=== PATIENT | female | born 1950 | race Caucasian/White ===

== ENCOUNTER 2016-07-04 16:36 | Inpatient (IN) | payer OTHER ==
[~2016-07-04 16:36] MED LIST: DUONEB (A & A) INH ONE; NS 1,000 ML IV ONE
--- NOTE | 2016-07-04 16:45 | PROVIDER DOCUMENTATION ---
HPI-General Adult - General Chief Complaint: Unresponsive Stated Complaint: unresponsive/Ca with mets Time Seen by Provider: 07/04/16 17:25 Allergies/Adverse Reactions: Patient Allergies Allergy/AdvReac Type Severity Reaction Status Date / Time No Known Allergies Allergy Verified 07/04/16 16:55 Home Medications: Home Medication List Medication Instructions Recorded Confirmed Last Taken Type Amphetamine Salts [Adderall] 20 mg PO BID 05/10/13 07/04/16 07/04/16 08:30 History Fluoxetine [Prozac] 20 mg PO BID 05/10/13 07/04/16 07/04/16 08:30 History Hydromorphone HCl [Dilaudid] 4 mg PO Q8HR PRN 05/10/13 07/04/16 07/04/16 08:30 History Letrozole [Femara] 25 mg PO DAILY 05/10/13 07/04/16 07/04/16 08:30 History Levetiracetam [Keppra] 1,000 mg PO BID 05/10/13 07/04/16 07/04/16 08:30 History Levothyroxine [Synthroid] 100 microgm PO DAILY 05/10/13 07/04/16 07/04/16 08:30 History Oxazepam [Serax] 30 mg PO TID 05/10/13 07/04/16 07/04/16 08:30 History Rizatriptan [Maxalt] 10 mg PO PRN PRN 05/10/13 07/04/16 07/04/16 08:30 History Topiramate [Topamax] 100 mg PO DAILY 05/10/13 07/04/16 07/04/16 08:30 History Methocarbamol [Robaxin-750] 750 mg PO BID 08/02/14 07/04/16 07/04/16 08:30 History Metoclopramide [Reglan] 10 mg PO Q6HR PRN 07/04/16 07/04/16 07/04/16 08:30 History Potassium Chloride 20 meq PO DAILY 07/04/16 07/04/16 07/04/16 08:30 History Rivaroxaban [Xarelto] 5 mg PO DAILY 07/04/16 07/04/16 07/04/16 08:30 History - History of Present Illness -Gen Adult Nature of Presenting Problems: A 66 y/o F with with PMH of metastatic breast cancer to brain as per the family was brought in altered mental status and barely responsive since one day as per the family since last few days was getting progressive worse and recent suspicion of infection was started on ABX, as baseline interacts for basic needs but noted detoriation from baseline, family is poor historian and no source from family Review of Systems - Adult - REVIEW OF SYSTEMS - ADULT ROS:: unobtainable per condition Constitutional: reports: no symptoms reported Eyes: reports: no symptoms reported Ears, Nose, Mouth & Throat: reports: no symptoms reported Cardiovascular: reports: no symptoms reported Respiratory: reports: no symptoms reported Gastrointestinal: reports: no symptoms reported Genitourinary: reports: no symptoms reported Musculoskeletal: reports: no symptoms reported Integumentary: reports: no symptoms reported Neurological: reports: no symptoms reported Psychiatric: reports: no symptoms reported Endocrine: reports: no symptoms reported Hematologic/Lymphatic: reports: no symptoms reported Allergic/Immunologic: reports: no symptoms reported All Other Systems: Reviewed and Negative Past History - Adult - PAST MEDICAL HISTORY-ADULT Review of Records: reports: Old Records Reviewed, Nursing Assessment Review, Medications Reviewed, Social history reviewed & non-contributory. Major Childhood Illnesses: reports: denies history Cardiovascular: reports: denies history Respiratory: reports: denies history Gastrointestinal: reports: denies history Obstetrical/Gynecological: reports: uterine/ovarian cancer (breast cancer) Genitourinary: reports: denies history Musculoskeletal: reports: denies history Neurological: reports: Seizures/Epilepsy Endocrine/Immune: reports: thyroid disorder Other Conditions: reports: denies history - PRIOR SURGERIES/PROCEDURES Surgical/Procedure History: reports: CABG, cholecystectomy, joint replacement ( total knee replacement), other (right mastectomy) - PRIOR HOSPITALIZATIONS Prior Hospitalizations: reports: for similar symptoms - IMMUNIZATION STATUS Childhood Immunizations: See Nurse Assessment Flu Vaccine: See Nurse Assessment - FAMILY HISTORY Family History: reviewed, not pertinent Physical Exam-General - PHYSICAL EXAM-ADULT Initial Vital Signs Reviewed: Yes - CONSTITUTIONAL General Appearance: obtunded - HEAD, EARS, NOSE, MOUTH & THROAT HENMT: normocephalic/atraumatic, other (dry mucous membranes) - NECK Neck: supple - RESPIRATORY Respiratory: rhonchi, wheezing - CARDIOVASCULAR Cardiovascular: normal peripheral pulses, regular rate, rhythm, no edema, no JVD , no murmur - GASTROINTESTINAL (ABDOMEN) Abdominal Exam: soft - GENITOURINARY Female Genitalia/Pelvic Exam: deferred - MUSCULOSKELETAL Back Exam: normal inspection Extremity: normal inspection - SKIN Integumentary: normal color, warm/dry - NEUROLOGIC Neurologic: other (unable to test) - PSYCHIATRIC Psych/Mental Status: other (arousable to sternal rub, gag reflex present) Progress - PLAN OF CARE/RESULTS Progress/Plan/Lab Results: Laboratory Tests 07/04/16 07/04/16 07/04/16 16:42 16:52 16:52 WBC 7.88 RBC 4.88 Hgb 15.2 Hct 47.5 H MCV 97.3 MCH 31.1 H MCHC 32.0 L RDW Std Deviation 13.7 Plt Count 215 MPV 11.0 H Immature Gran % (Auto) 0.3 Neut % (Auto) 71.1 Lymph % (Auto) 18.8 L [place] % (Auto) 8.6 Eos % (Auto) 1.1 Baso % (Auto) 0.1 Immature Gran # (Auto) 0.02 Neut # (Auto) 5.60 Lymph # (Auto) 1.48 [place] # (Auto) 0.68 H Eos # (Auto) 0.09 Baso # (Auto) 0.01 Specimen Type ARTERIAL Sample Site R RADIAL pH 7.40 pCO2 35 pO2 70 HCO3 22.8 Base Excess -2.5 Oxyhemoglobin 93.0 L ABG O2 Sat (Calculated) 19.2 ABG O2 Saturation 97.2 ABG Carboxyhemoglobin 2.50 ABG Methemoglobin 1.9 H Александр Test YES A-a O2 Difference 86.0 Total Hemoglobin 14.7 Lactate 0.80 Liter Flow 2.0 Blood Gas Modality CANNULA FiO2 % 28.0 Sodium 141 Potassium 4.3 Chloride 104 Carbon Dioxide 22 L Anion Gap 15 BUN 21 Creatinine 0.6 Estimated GFR/1.73 m2 > 60 BUN/Creatinine Ratio 35 Glucose 108 H Calculated Osmolality 285 Calcium 9.6 Total Bilirubin 0.24 AST 40 H ALT 28 Alkaline Phosphatase 119 H Troponin T [id number] Pept Total Protein 8.1 Albumin 4.0 Globulin 4.1 Albumin/Globulin Ratio 1.0 Salicylates < 3.00 L 07/04/16 07/04/16 16:52 16:52 WBC RBC Hgb Hct MCV MCH MCHC RDW Std Deviation Plt Count MPV Immature Gran % (Auto) Neut % (Auto) Lymph % (Auto) [place] % (Auto) Eos % (Auto) Baso % (Auto) Immature Gran # (Auto) Neut # (Auto) Lymph # (Auto) [place] # (Auto) Eos # (Auto) Baso # (Auto) Specimen Type Sample Site pH pCO2 pO2 HCO3 Base Excess Oxyhemoglobin ABG O2 Sat (Calculated) ABG O2 Saturation ABG Carboxyhemoglobin ABG Methemoglobin Александр Test A-a O2 Difference Total Hemoglobin Lactate Liter Flow Blood Gas Modality FiO2 % Sodium Potassium Chloride Carbon Dioxide Anion Gap BUN Creatinine Estimated GFR/1.73 m2 BUN/Creatinine Ratio Glucose Calculated Osmolality Calcium Total Bilirubin AST ALT Alkaline Phosphatase Troponin T < 0.010 [id number]-Zefdbeodbjh Pept 403 H Total Protein Albumin Globulin Albumin/Globulin Ratio Salicylates Orders Category Date Time Status Saline Loc NOW Care 07/04/16 16:26 Active CHEST-PORTABLE [RAD] Stat Exams 07/04/16 16:26 Draft HEAD/C-SPINE W/O CONTRAST [CT] Stat Exams 07/04/16 16:29 Taken ABG [RESP] Routine Lab 07/04/16 16:42 Completed BLOOD CULTURE [BLDCUL] Stat Lab 07/04/16 17:15 Results CBC WITH DIFF [HEME] Stat Lab 07/04/16 16:52 Completed COMPREHENSIVE METABOLIC PANEL [CHEM] Stat Lab 07/04/16 16:52 Completed INFLUENZA SCREEN A/B Stat Lab 07/04/16 18:15 Completed PRO B-NATRIURETIC PEPTIDE Stat Lab 07/04/16 16:52 Completed SALICYLATES [TDM] Stat Lab 07/04/16 16:52 Completed TROPONIN T Stat Lab 07/04/16 16:52 Completed URINALYSIS [URINALYSIS] Stat Lab 07/04/16 16:28 Uncollected URINE DRUG SCREEN Stat Lab 07/04/16 16:39 Uncollected 0.9% Sodium Chloride Inj [Ns] 1,000 ml Med 07/04/16 16:26 Discontinued IV 999 mls/hr 0.9% Sodium Chloride Inj [Ns] 1,000 ml Med 07/04/16 19:19 Active IV 999 mls/hr Albuterol 2.5MG/Ipratrop 0.5MG [Duoneb (A & A)] Med 07/04/16 16:26 Discontinued 3 ml INH NOW ONE CefTRIAXONE 1 GM/NS [Rocephin 1 gm/Ns] 50 ml Med 07/04/16 19:19 Active IV NOW Aerosol Treatments Routine Oth 07/04/16 16:27 Completed Aerosol Treatments Stat Oth 07/04/16 16:27 Completed Pulse Oximetry Stat Oth 07/04/16 16:26 Active EKG [EKG] Stat Ther 07/04/16 16:39 Ordered Vital Signs Temp Pulse Resp BP Pulse Ox 07/04/16 16:50 83 16 95 07/04/16 16:36 102.0 F H 84 19 117/74 91 L No Known Allergies Allergy (Verified 07/04/16 16:55) Amphetamine Salts [Adderall] 20 mg PO BID 05/10/13 Fluoxetine [Prozac] 20 mg PO BID 05/10/13 Hydromorphone HCl [Dilaudid] 4 mg PO Q8HR PRN 05/10/13 Letrozole [Femara] 25 mg PO DAILY 05/10/13 Levetiracetam [Keppra] 1,000 mg PO BID 05/10/13 Levothyroxine [Synthroid] 100 microgm PO DAILY 05/10/13 Oxazepam [Serax] 30 mg PO TID 05/10/13 Rizatriptan [Maxalt] 10 mg PO PRN PRN 05/10/13 Topiramate [Topamax] 100 mg PO DAILY 05/10/13 Methocarbamol [Robaxin-750] 750 mg PO BID 08/02/14 Metoclopramide [Reglan] 10 mg PO Q6HR PRN 07/04/16 Potassium Chloride 20 meq PO DAILY 07/04/16 Rivaroxaban [Xarelto] 5 mg PO DAILY 07/04/16 I&O 07/03/16 07/04/16 07/05/16 07:59 07:59 07:59 Output Total 0 Balance 0 Laboratory 07/04/16 07/04/16 07/04/16 16:52 16:52 16:52 WBC RBC Hgb Hct MCV MCH MCHC RDW Std Deviation Plt Count MPV Immature Gran % (Auto) Neut % (Auto) Lymph % (Auto) [place] % (Auto) Eos % (Auto) Baso % (Auto) Immature Gran # (Auto) Neut # (Auto) Lymph # (Auto) [place] # (Auto) Eos # (Auto) Baso # (Auto) Specimen Type Sample Site pH pCO2 pO2 HCO3 Base Excess Oxyhemoglobin ABG O2 Sat (Calculated) ABG O2 Saturation ABG Carboxyhemoglobin ABG Methemoglobin Александр Test A-a O2 Difference Total Hemoglobin Lactate Liter Flow Blood Gas Modality FiO2 % Sodium 141 Potassium 4.3 Chloride 104 Carbon Dioxide 22 L Anion Gap 15 BUN 21 Creatinine 0.6 Estimated GFR/1.73 m2 > 60 BUN/Creatinine Ratio 35 Glucose 108 H Calculated Osmolality 285 Calcium 9.6 Total Bilirubin 0.24 AST 40 H ALT 28 Alkaline Phosphatase 119 H Troponin T < 0.010 Pgy-I-Knchwmnoaro Pept 403 H Total Protein 8.1 Albumin 4.0 Globulin 4.1 Albumin/Globulin Ratio 1.0 Salicylates < 3.00 L 07/04/16 07/04/16 16:52 16:42 WBC 7.88 RBC 4.88 Hgb 15.2 Hct 47.5 H MCV 97.3 MCH 31.1 H MCHC 32.0 L RDW Std Deviation 13.7 Plt Count 215 MPV 11.0 H Immature Gran % (Auto) 0.3 Neut % (Auto) 71.1 Lymph % (Auto) 18.8 L [place] % (Auto) 8.6 Eos % (Auto) 1.1 Baso % (Auto) 0.1 Immature Gran # (Auto) 0.02 Neut # (Auto) 5.60 Lymph # (Auto) 1.48 [place] # (Auto) 0.68 H Eos # (Auto) 0.09 Baso # (Auto) 0.01 Specimen Type ARTERIAL Sample Site R RADIAL pH 7.40 pCO2 35 pO2 70 HCO3 22.8 Base Excess -2.5 Oxyhemoglobin 93.0 L ABG O2 Sat (Calculated) 19.2 ABG O2 Saturation 97.2 ABG Carboxyhemoglobin 2.50 ABG Methemoglobin 1.9 H Александр Test YES A-a O2 Difference 86.0 Total Hemoglobin 14.7 Lactate 0.80 Liter Flow 2.0 Blood Gas Modality CANNULA FiO2 % 28.0 Sodium Potassium Chloride Carbon Dioxide Anion Gap BUN Creatinine Estimated GFR/1.73 m2 BUN/Creatinine Ratio Glucose Calculated Osmolality Calcium Total Bilirubin AST ALT Alkaline Phosphatase Troponin T Qzc-[id number]-Kttegtxagko Pept Total Protein Albumin Globulin Albumin/Globulin Ratio Salicylates - EKG 1 Time of EKG reading by physician:: 19:21 Comments: NSR, non specific ST depression in V3-6 - XRAY 1 XRAY Study: Chest Impression: See EMR Report - CT/MRI 1 CT Study: Head Impression: See EMR Report - CONSULTS/PCP/HOSPITALIST Notification #1 *Consult/PCP/Hospitalist*: DR Poe Time Discussed: 19:22 Consult Disposition: Admit - CHANGE OF SHIFT REPORT (ED Provider) Items Pending: Labs, CT/MRI Results Departure - Departure Time of Disposition Order: 19:22 DIAGNOSIS: ST segment changes on electrocardiogram Altered mental status Qualifiers: Altered mental status type: unspecified Qualified Code(s): R41.82 - Altered mental status, unspecified Disposition: ADMITTED INPATIENT 09 Certified Medical Emergency: Emergent Condition: Stable - Critical Care Note Comments: A 66 y/o who was AMS compared to her baseline initial labs not impressive given bolus of fluids improved influenza was negative WBC normal unable to get urine after foleys will bolus with another IV fluids, admit for further evalaution after rocephen
[2016-07-04 16:51] LABS: ALLEN TEST YES; BE -2.5 mmoll (-3.0-3.0); BLOOD TYPE ARTERIAL; DRAW SITE R RADIAL; METHB 1.9 % (0.0-1.5); O2(CT) 19.2 mL/dL (15.0-23.0); PCO2(98.6) 35 mmHg (35-45); PO2(98.6) 70 mmHg (60-100); SAMPLE BLOOD; SAO2 97.2 % (95.0-100.0); THB 14.7 g/dL (11.5-17.4)
[2016-07-04 16:52] LABS: MODALITY CANNULA
[2016-07-04 17:08] LABS: MANUAL DIFF NEEDED? NO
[2016-07-04 17:10] LABS: BASO% 0.1 % (0.0-0.8); EOS# 0.09 X1000 (0.0-0.7); EOS% 1.1 % (0.0-10.0); HEMATOCRIT 47.5 % (37.0-47.0); HEMOGLOBIN 15.2 g/dL (12.0-16.0); IMM GRAN# 0.02 X1000 (0.0-0.04); IMM GRAN% 0.3 % (0.0-0.5); LYMPH# 1.48 X1000 (1.2-3.4); LYMPH% 18.8 % (20.5-51.1); MCH 31.1 PG (27-31); MCV 97.3 FL (81-99); MONO# 0.68 X1000 (0.11-0.59); MONO% 8.6 % (1.7-9.3); NEUT% 71.1 % (42.2-75.2); PLT 215 X1000 (130-400); RBC 4.88 XMIL (4.2-5.4)
--- NOTE | 2016-07-04 17:11 | Diag Imaging Result Document ---
PROCEDURE NAME: CHEST-PORTABLE - 07/04/2016 PORTABLE CHEST X-RAY: COMPARISON: 01/03/2015. FINDINGS: Stable left chest port in good position. There is some stable atelectasis or scarring in the right apex. No new or focal infiltrates. Heart size is normal. IMPRESSION: No change from prior. No evidence of acute disease.
[2016-07-04 17:44] LABS: AGAP 15; ALKALINE PHOSPHATASE 119 U/L (32-104); BUN 21 mg/dL (8-22); CALCIUM 9.6 mg/dL (8.8-10.2); CHLORIDE 104 mmol/L (98-107); COSMO 285; GOT 40 U/L (10-30); GPT 28 U/L (10-36); POTASSIUM 4.3 mmol/L (3.5-5.1); SODIUM 141 mmol/L (136-145); TCO2 22 mmol/L (25-35); TOTAL BILIRUBIN 0.24 mg/dL (0.20-1.00); TOTAL PROTEIN 8.1 g/dL (6.3-8.3)
[2016-07-04] MEDS ORDERED: NS 1,000 ML IV ONE (19:19)
[2016-07-04] MEDS ORDERED: ROCEPHIN 1 GM/NS 50 ML IV ONE (19:19)
[2016-07-04 19:59] LABS: URINE SOURCE CATH
[2016-07-04 20:04] LABS: BILIRUBIN URINE NEGATIVE (NEGATIVE); BLOOD URINE LARGE (NEGATIVE); COLOR YELLOW; GLUCOSE URINE NEGATIVE (NEGATIVE); LEUKOCYTES URINE SMALL (NEGATIVE); NITRITE URINE NEGATIVE (NEGATIVE); PH URINE 5.5; PROTEIN URINE 200 mg/dL (NEGATIVE); SP GRAVITY URINE 1.027; TURBIDITY URINE HAZY (CLEAR); UROBILINOGEN URINE NORMAL (NORMAL)
[2016-07-04 20:06] LABS: URINE MICRO REVIEW NEEDED? YES
[2016-07-04 20:18] LABS: UR EPITHELIAL CELLS <10 /HPF (<10); URINE BACTERIA NEGATIVE /HPF; URINE WBC TNTC /HPF (<10)
[2016-07-04 20:26] LABS: URINE CASTS NONE SEEN; URINE CRYSTALS NONE SEEN; URINE SMALL ROUND CELLS RENAL PRESENT
[2016-07-04 20:28] LABS: UR AMPHETAMINES QUAL NONE DETECTED (NONE DETECT); UR BARBITUATES QUAL NONE DETECTED (NONE DETECT); UR BENZODIAZEPIN QUAL PRESUMPTIVE POSITIVE (NONE DETECT); UR CANNABINOIDS QUAL NONE DETECTED (NONE DETECT); UR COCAINE QUAL NONE DETECTED (NONE DETECT); UR METHADONE QUAL NONE DETECTED (NONE DETECT); UR OPIATES QUAL PRESUMPTIVE POSITIVE (NONE DETECT); UR OXYCODONE QUAL NONE DETECTED (NONE DETECT); UR PCP QUAL NONE DETECTED (NONE DETECT)
[2016-07-04] MEDS ORDERED: NITROGLYCERIN ONE (21:24)
[2016-07-04] MEDS ORDERED: LASIX ONE (21:24)
[2016-07-04] MEDS ORDERED: MAXALT PO PRN (22:29)
[2016-07-04] MEDS: DUONEB (A & A) INH SCH (22:29)
[2016-07-04] MEDS ORDERED: DILAUDID PO PRN (22:29)
[2016-07-04] MEDS ORDERED: REGLAN PO PRN (22:29)
[2016-07-04] MEDS ORDERED: ZOFRAN IV PRN (22:29)
[2016-07-04] MEDS: TYLENOL PR PRN (22:40)
[2016-07-04] MEDS ORDERED: DUONEB (A & A) ONE (22:49)
[2016-07-05] MEDS: NS 1,000 ML IV SCH ×2 (03:33→16:10)
[2016-07-05] MEDS: DUONEB (A & A) INH SCH ×4 (04:00→19:28)
--- NOTE | 2016-07-05 04:53 | HISTORY AND PHYSICAL ---
CHIEF COMPLAINT: Unresponsiveness. HISTORY OF PRESENT ILLNESS: This is an unfortunate 66-year-old female, who has her at the bedside. She is known to have metastatic breast cancer with metastases to the brain and bone. She was brought in with altered mental status. Apparently, she is really never responsive at home and is bed bound per the family. The did state that she is somewhat more responsive than she is on the interview. At the time of interview, she basically only opens her eyes and makes eye contact. Does not respond or have any purposeful movements or follow commands. The did state that as far as they knew, the cancer had gone into remission; however, he is a very poor historian and was not able to give me any real information on her last chemotherapy. As far as the knows, roughly 1 year ago, it went into remission. Dr. Agarwal was treating her and stated that according to the , he did need to see her as frequently. At any rate, she has further past medical history of seizure disorder, hypothyroidism, DVT, GERD and hypertension related to her chronic versus acute presentation. She will be placed in ICU overnight. Her blood pressures on arrival were very marginal with a systolic blood pressure being in the 90s. She has a questionable history of congestive heart failure. So, it is unknown whether the patient can have substantial fluid bolusing without overloading. PAST MEDICAL HISTORY: See HPI. PREVIOUS SURGICAL HISTORY: 1. Right mastectomy. 2. CABG. 3. Cholecystectomy. 4. Total knee replacement. SOCIAL HISTORY: She lives at home with her . Denies tobacco, alcohol or illicit drug use or abuse. FAMILY HISTORY: Brother had esophageal and liver cancer. No other known past medical history per the . HOME MEDICATIONS: 1. Adderall 20 mg p.o. b.i.d. 2. Robaxin 750 p.o. b.i.d. 3. Prozac 20 mg p.o. b.i.d. 4. Dilaudid 4 mg p.o. q.8 hours. 5. Letrozole 25 mg p.o. daily. 6. Keppra 1000 mg p.o. b.i.d. 7. Synthroid 100 mcg p.o. daily. 8. Reglan 10 mg p.o. q.6 hours p.r.n. 9. Serax 30 mg p.o. t.i.d. 10. Potassium chloride 20 mEq p.o. daily. 11. Xarelto 5 mg p.o. daily. 12. Maxalt 10 mg p.o. p.r.n. 13. Topamax 10 mg p.o. daily. ALLERGIES: No known drug allergies. REVIEW OF SYSTEMS: Fourteen point review of systems could not be performed with the patient, as she is obtunded. states that she is have her call off at home. He states that he had not been keeping close watch on her over the last couple days as he has been ill himself. PHYSICAL EXAMINATION: VITAL SIGNS: Temp was 101.5 degrees rectally, pulse 70, respirations 15, blood pressure 90/50 to 103/61, oxygen saturation 95-97 on 3 L nasal cannula. GENERAL: Obtunded 66-year-old female, lying in the ER stretcher. No acute distress. Does not answer questions or follow commands. HEENT: Head is atraumatic, normocephalic. Right pupil is 5 mm and sluggish, left pupil 3 mm and sluggish; however, both are reactive. Extraocular eye movement could not be tested. She does not follow commands. Oral mucosa is dry. NECK: Supple. No JVD. No thyromegaly. Trachea is midline. No cervical lymphadenopathy. CARDIAC: Regular rhythm. S1-S2 appreciated, 1 to 2/6 systolic murmur noted. LUNGS: Decreased bilaterally. Mild rhonchi noted throughout the airways that clears with cough. ABDOMEN: Soft, nondistended, nontender. Bowel sounds present in all 4 quadrants. Hypoactive. No pulsatile mass. No organomegaly. EXTREMITIES: Trace nonpitting bilateral lower extremity edema. One plus pedal pulses bilaterally. No clubbing, cyanosis, or edema. GENITOURINARY: Beltran catheter in place draining scant amount of dark urine. NEUROLOGICAL: Patient does not follow commands. She does reflex to deep stimulus. Did make eye contact. The patient is nonverbal at present. According to the , this is close to her baseline status. DIAGNOSTIC DATA: CT of the head shows chronic changes. Chest x-ray stable from last x-ray. No acute infiltrate or fluid volume overload. LABORATORY DATA: WBC 7.88, hemoglobin 15.2, hematocrit 47.5 platelet count 215,000. ABG within normal limits. Sodium 141, potassium 4.3, chloride 104, carbon dioxide 22, BUN 21, creatinine 0.6, glucose 108, alkaline phosphate is 119. Urine is leukocyte esterase positive with too numerous to count WBCs. Toxicology screen positive for opiates and benzodiazepines, which were prescribed medications. ASSESSMENT: 1. Altered mental status with febrile illness in a stage IV breast cancer patient with metastases to the brain and bone. 2. Questionable urinary tract infection. 3. Hypothyroidism. 4. Gastroesophageal reflux disease. 5. Seizure disorder. 6. Hypertension, now hypotensive. PLAN: Admit patient overnight to the ICU for close monitoring, as she is hypotensive; 2 L of fluid bolus was given in the emergency room. We will continue maintenance fluids for gentle hydration with normal saline at 75 mL an hour. We will continue Topamax and Maxalt for seizure disorder. Continue Xarelto for history of DVTs also related to her having a Port-A-Cath. Continue her Synthroid for hypothyroidism. Add Keppra to the medications. Maxalt and Topamax that were continued for seizure disorder. We will continue her Dilaudid for pain control. Hold her Adderall at this time, as well as her Robaxin. states that if his 's heart were to spontaneously stop or she were to spontaneously stop breathing, she would want full resuscitative measures. We will consult Dr. Agarwal, who is familiar with the patient. Recheck laboratory data in a.m. Urine culture and blood cultures are pending. Recheck echocardiogram, as the patient has a stated history of congestive heart failure. Also, check TSH level. Further recommendations per patient clinical course. Dictated by PIA Vargas for Carl Poe MD
[2016-07-05 06:06] LABS: MANUAL DIFF NEEDED? NO
[2016-07-05 06:30] LABS: AGAP 13; BUN 16 mg/dL (8-22); CHLORIDE 114 mmol/L (98-107); COSMO 295; MAGNESIUM 1.7 mg/dL (1.5-2.7); POTASSIUM 3.1 mmol/L (3.5-5.1); SODIUM 147 mmol/L (136-145); TCO2 20 mmol/L (25-35)
[2016-07-05 06:46] LABS: CALCIUM 8.1 mg/dL (8.8-10.2)
[2016-07-05 06:51] LABS: BASO% 0.2 % (0.0-0.8); EOS# 0.01 X1000 (0.0-0.7); EOS% 0.2 % (0.0-10.0); HEMATOCRIT 39.5 % (37.0-47.0); HEMOGLOBIN 12.6 g/dL (12.0-16.0); LYMPH# 1.41 X1000 (1.2-3.4); LYMPH% 21.5 % (20.5-51.1); MCH 31.6 PG (27-31); MCHC 31.9 g/dL (33-37); MONO# 0.55 X1000 (0.11-0.59); MONO% 8.4 % (1.7-9.3); MPV 10.7 FL (7.4-10.4); NEUT% 69.7 % (42.2-75.2); PLT 200 X1000 (130-400); RBC 3.99 XMIL (4.2-5.4)
--- NOTE | 2016-07-05 07:23 | EKG Report ---
Test Performed on : 07/05/2016 06:35:28 AM Test Reason : chest pain Blood Pressure : / mmHG Vent. Rate : 060 BPM Atrial Rate : 060 BPM P-R Int : 178 ms QRS Dur : 072 ms QT Int : 376 ms P-R-T Axes : 040 -01 -37 degrees QTc Int : 376 ms Normal sinus rhythm. Nonspecific ST and T wave abnormality Abnormal ECG When compared with ECG of 04-JUL-2016 19:11, (Unconfirmed) QT has shortened Confirmed by Thea PHILLIPS, Александр Landrum ([id number]) on 07/05/2016 5:23:11 PM
[2016-07-05] MEDS: SERAX PO SCH ×3 (08:18→16:15)
[2016-07-05] MEDS: PROZAC PO SCH ×2 (08:18→20:29)
[2016-07-05] MEDS: KLOR-CON PO SCH (08:18)
[2016-07-05] MEDS: SYNTHROID PO SCH (08:19)
[2016-07-05] MEDS: TOPAMAX PO SCH (08:19)
[2016-07-05] MEDS ORDERED: KEPPRA PO SCH (09:00)
--- NOTE | 2016-07-05 09:08 | ED EKG INTERP ---
EKG Interpretation - EKG Time of EKG reading by physician:: 19:11 EKG Read and Signed by:: Carlyn Saldana EKG Interpretation (*Must complete 3 of following elements*): Abnormal Rate: 75 Rhythm: nsr [place]: normal QRS: normal IA Interval: normal ST Wave: non-specific ST changes
--- NOTE | 2016-07-05 09:35 | Diag Imaging Result Document ---
PROCEDURE NAME: HEAD/C-SPINE W/O CONTRAST - 07/04/2016 CT OF THE HEAD WITHOUT CONTRAST: FINDINGS: There is marked cerebral atrophy. This is particularly notable in the frontal lobes where there is profound hypodensity in the subcortical white matter. There is no evidence of bleed or mass effect. Compared to the previous study of 08/02/2014, the appearance of the brain has not changed appreciably. IMPRESSION: Chronic atrophy and white matter changes. No evidence of acute intracranial disease. CT OF THE CERVICAL SPINE: FINDINGS: There is a large linear opacity in the upper lobe on the right extending to the apical pleura. This is probably due to fibrosis. A similar appearance was present on the CT of the chest dated 05/25/2010. There is no evidence of prevertebral soft tissue swelling. There is posterior osteophyte formation at C5-6 and ankylosis at C6-7. Facets appear to be well aligned. IMPRESSION: No evidence of acute bony disease.
--- NOTE | 2016-07-05 09:48 | PROGRESS NOTE ---
DATE: 07/05/2016 SUBJECTIVE: Ms. Rapp is a little more comfortable; her son was at the bedside working on his laptop. He states that her breathing is better. She was up most of the night last night struggling to breathe. Her history is that she presented about 12 o'clock last night. She is a 66-year-old whose was at the bedside when she presented. She has metastatic breast cancer with metastasis to the brain and bone. She has trouble with speech delays, but he noticed altered mental status. She was not recognizing people and seemed to be less responsive. She is bed bound somewhat, and there is quite a bit of improvement from last night to this morning. He felt the cancer had gone into remission and feels like the cancer was doing better from that standpoint by his understanding. PAST MEDICAL HISTORY: Seizure disorder, hypothyroidism, DVT, gastroesophageal reflux disease and hypertension. PAST SURGICAL HISTORY: Right mastectomy CABG surgery, cholecystectomy, total knee replacement. OBJECTIVE: Vital Signs: On exam today in the emergency room she is still in holding. Temp 98.3 degrees, pulse 52, respirations 20, blood pressure 106/53. Eyes: Pupils were equal, round. Lungs: Clear in all lung levy. Cardiovascular exam: Regular rhythm and rate without murmur or S3. Abdomen: Soft. Skin: Warm and dry. LABS: White blood cell count 6560, hematocrit 39, platelet count 200,000. Sodium 147, potassium 3.1, chloride 114, bicarbonate 20, BUN 16, creatinine 0.5. Blood sugar 119 and 108. Urine drug screen: She is presumptive positive for opiates and benzodiazepines which she takes. Urinalysis was too numerous to count white blood cells. Culture is pending. Blood gas when she arrived: The pH was 7.40, pCO2 of 35, PO2 was 70, O2 saturation was 93%. MICROBIOLOGY: Respiratory secretions negative for influenza A and B. X-RAYS: Chest x-ray: There is no change from prior. No evidence of acute disease. ASSESSMENT AND PLAN: 1. Altered mental status, febrile illness, stage IV breast cancer. Patient with metastasis to the brain and bone. 2. Questionable urinary tract infection with what looks like she has urinary tract infection. 3. Hypothyroidism. 4. Gastroesophageal reflux disease. 5. History of seizure disorder. 6. Hypertension. Appears to be doing a little bit better. She is followed by Dr. Agarwal. REVIEWED CURRENT MEDICATIONS: 1. Xarelto 5 mg daily. 2. Femara 25 mg daily. 3. Topamax 100 mg daily. 4. Synthroid 100 mcg daily. 5. Serax 30 mg t.i.d. 6. Ceftriaxone 1 g q. 24 hours. 7. Prozac 20 mg b.i.d. 8. Normal saline at 75 mL an hour. 9. Keppra 1000 mg b.i.d. 10. Potassium chloride 20 mEq daily. 11. The patient is on albuterol treatments. 12. She received a dose of Maxalt I believe for migraine headache.
--- NOTE | 2016-07-05 12:29 | CONSULTATION ---
DATE OF CONSULTATION: 07/05/2016 REASON FOR CONSULT: This patient is known us with metastatic breast cancer to the bones and brain. She has been on Femara 2.5 mg. she had previously been on Herceptin but her ejection fraction dropped and so she came off of it. She has not been seen in our clinic since December due to difficulties traveling to our clinic. She is on home health care. HISTORY OF PRESENT ILLNESS: At baseline patient is wheelchair/bed bound and non -verbal. The patient is in the hospital with unresponsiveness. She is known to have metastatic breast cancer to the brain and bones, and we have not seen her in our clinic since December,. She is, however, and she is however and continuing on Femara 2.5 mg a day. She has been receiving palliative care at home health services. Apparently she became more unresponsive than usual, no purposeful movements or following commands. There is no stated falls. A head/cervical spine CT were performed which showed no acute processes, and the C-spine showed chronic atrophy and white matter changes with no evidence of acute intracranial disease. REVIEW OF SYSTEMS: All other review of systems negative unless indicated in the HPI. ALLERGIES: No known allergies. PAST MEDICAL HISTORY: 1. Metastatic breast cancer to brain and bones. 2. B12 deficiency. 3. Brain metastases status post radiation. MEDICATIONS: 1. Adderall. 2. Robaxin. 3. Prozac. 4. Dilaudid. 5. Keppra. 6. Synthroid. 7. Reglan. 8. Potassium. 9. Xarelto. 10. Maxalt. 11. Topamax. DIAGNOSTIC DATA: A CT of the head and C-spine as above. WBC 6.56, hemoglobin 12.6, platelet count 200,000 sodium 147, potassium 3.1, BUN 16, creatinine 0.5. PHYSICAL EXAMINATION: Vital signs: Are stable. This is an obtunded female in no acute distress and does not follow commands. HEENT: Head is normocephalic, atraumatic. Pupils are sluggish. Oral mucosa dry. Cardiovascular: S1, S2 audible auscultation with no heaves, lifts, thrills. Pulmonary: Breath sounds diminished bilaterally with normal respiratory effort. Abdomen: Soft, nondistended. Positive bowel sounds in all 4 quadrants. Extremities: There is trace edema bilateral lower extremities. Neurologic: Patient does not follow commands. Skin: No petechiae, no rash. ASSESSMENT AND PLAN: 1. Metastatic breast cancer to brain and bones. This patient has not been seen in our clinic since December,. She apparently has been continuing on Femara 2.5 mg a day. The Herceptin was stopped in October, due to decreased ejection fraction. She has stopped coming to our clinic due to difficulty traveling back and forth. She is under palliative care and Home Health. 2. Altered mental status. CT of the head was essentially benign per the primary team. 3. Seizure disorder on Keppra. 4. Brain metastases status post radiation. 5. History of deep vein thrombosis. Patient is on Xarelto. Dictated by PIA Hernandez for Rick Agarwal MD MTDD
[2016-07-05] MEDS: FEMARA PO SCH (15:08)
[2016-07-05] MEDS: XARELTO PO SCH (16:10)
[2016-07-05] MEDS: KEPPRA 1,000 MG in NS 100 ML IV SCH (16:10)
[2016-07-05] MEDS ORDERED: CALMOSEPTINE OINTMENT TOP PRN (17:10)
[2016-07-05] MEDS: ROCEPHIN 1 GM/NS 50 ML IV SCH (17:32)
--- NOTE | 2016-07-05 17:53 | ECHO REPORT ---
ORDER DATE: 07/05/2016 INTERPRETING PHYSICIAN: Dr. Ng REQUESTING PHYSICIAN: CLINICAL INDICATIONS: A 66-year-old female with congestive heart failure, breast cancer. M-MODE MEASUREMENTS: Right ventricle: 2.7 cm. Left ventricle end diastole: 4.5 cm. Left ventricle end systole: 3.1 cm. Posterior wall: 1.1 cm. Interventricular septum: 1.1 cm. Left atrium: 3.2 cm. Aortic root: 3.1 cm. SUMMARY OF 2-DIMENSIONAL IMAGING: The left ventricular function is normal. Ejection fraction 61%. There is no wall motion abnormality. The right ventricle is normal. The aortic valve looks normal. Color flow mapping unremarkable. The mitral valve looks normal. Pulse wave Doppler of mitral inflow is normal. Tissue Doppler of septal and lateral mitral annulus averages 11 cm per second. There is no diastolic dysfunction. The tricuspid valve shows a mild degree of regurgitation. Pulmonary pressure is estimated in the range of 32-37 mmHg. The pulmonic valve looks normal. Color flow mapping unremarkable. There is no pericardial effusion, masses or thrombus. Clinical correlation recommended.
[2016-07-05] MEDS ORDERED: BLISTEX MEDICATED BERRY LIP BALM TOP PRN (20:40)
[2016-07-05] MEDS: MORPHINE IV PRN (20:54)
[2016-07-05] MEDS: TYLENOL PR PRN (23:41)
[2016-07-06] MEDS: DUONEB (A & A) INH SCH ×4 (02:49→21:45)
[2016-07-06] MEDS: KEPPRA 1,000 MG in NS 100 ML IV SCH ×2 (02:56→15:35)
[2016-07-06] MEDS: NS 1,000 ML IV SCH ×2 (02:56→18:17)
[2016-07-06] MEDS: MORPHINE IV PRN ×3 (02:56→21:57)
[2016-07-06] MEDS: SYNTHROID PO SCH (06:02)
[2016-07-06] MEDS: FEMARA PO SCH (08:59)
[2016-07-06] MEDS: PROZAC PO SCH ×2 (08:59→21:10)
[2016-07-06] MEDS: XARELTO PO SCH (08:59)
[2016-07-06] MEDS: TOPAMAX PO SCH (09:00)
[2016-07-06] MEDS ORDERED: POTASSIUM CHLORIDE 40 MEQ/SWI 100 ML IV ONE ×2 (09:01→09:37)
[2016-07-06] MEDS: SERAX PO SCH ×3 (09:07→16:45)
[2016-07-06] MEDS: KLOR-CON PO SCH (09:07)
--- NOTE | 2016-07-06 10:30 | Diag Imaging Result Document ---
PROCEDURE NAME: CHEST/ABD TUBE PLACEMENT - 07/05/2016 PORTABLE EXAM FOR NASOGASTRIC TUBE PLACEMENT 2155 HOURS: FINDINGS: The tip of the nasogastric tube is at the expected location of the mid stomach. IMPRESSION: Nasogastric tube extending to the mid stomach.
[2016-07-06] MEDS: ATIVAN IV PRN ×2 (11:33→21:57)
--- NOTE | 2016-07-06 12:16 | PROGRESS NOTE ---
DATE: 07/06/2016 SUBJECTIVE: Ms. Rapp appears more alert. The sons are at the bedside. She is trying to grind her teeth, which apparently she does at home. She takes Serax when she is at home, which we are not able to give her right now. We need to order it up. She is not really taking anything by mouth at this point. OBJECTIVE: Vital signs: Afebrile, temp 99.4, pulse 68, respirations 17, blood pressure 105/61. HEENT: Pupils are equal and round. Lungs: Clear in all lung levy. Cardiovascular: She has got a regular rhythm and rate without murmur or S3. Abdomen: Soft. Skin: Warm and dry. Urine output 800 mL. LAB: No new lab from this morning. Reviewed lab from yesterday. Potassium is 3.1. Magnesium was 1.7. DIAGNOSTIC DATA: We did an echocardiogram on 07/05/2016. Left ventricular ejection fraction 61%. No wall motion abnormality. Right ventricle normal. Aortic valve looked normal. No valvular dysfunction. Pulmonary pressure is 32-37. Tricuspid valve showed a mild degree of regurgitation. ASSESSMENT AND PLAN: 1. Metastatic breast cancer to the bones and brain. We have been continuing Femara 2.5 mg a day. Herceptin was stopped in October of 2014 due to decreased ejection fraction. She had stopped coming to the clinic due to difficulty travelling back and forth. She is under palliative care with home health. 2. Altered mental status. CT of the head essentially benign but appears to be metabolic encephalopathy. 3. Seizure disorder on Keppra. Continue the Keppra. 4. Brain metastasis status post radiation. 5. History of deep venous thrombosis. She is, I believe, on Xarelto. MEDICATIONS: Have her on Keppra 1000 mg q.12 h., Xarelto 5 mg daily, Topamax 100 mg daily, Synthroid 100 mcg daily, Serax is ordered 30 mg p.o. t.i.d.--still waiting on that, Prozac 20 mg b.i.d., ceftriaxone 1 g q.24 h., Femara 2.5 mg daily, Maxalt 10 mg we gave her in the emergency room. Will continue present regimen, supplement her potassium.
[2016-07-06] MEDS: ROCEPHIN 1 GM/NS 50 ML IV SCH (18:17)
[2016-07-07] MEDS: ATIVAN IV PRN ×2 (03:06→20:47)
[2016-07-07] MEDS: MORPHINE IV PRN ×3 (03:06→20:48)
[2016-07-07] MEDS: KEPPRA 1,000 MG in NS 100 ML IV SCH ×2 (03:07→15:32)
[2016-07-07] MEDS: DUONEB (A & A) INH SCH ×4 (03:47→23:32)
[2016-07-07] MEDS: NS 1,000 ML IV SCH ×2 (06:20→18:10)
[2016-07-07] MEDS: SYNTHROID PO SCH (06:20)
[2016-07-07] MEDS: TOPAMAX PO SCH (08:25)
[2016-07-07] MEDS: FEMARA PO SCH (08:25)
[2016-07-07] MEDS: XARELTO PO SCH (08:25)
[2016-07-07] MEDS: PROZAC PO SCH ×2 (08:25→20:47)
--- NOTE | 2016-07-07 09:55 | PROGRESS NOTE ---
DATE: 07/07/2016 SUBJECTIVE: Ms. Rapp appears a little more comfortable. Son feels like she is a little more comfortable. Remains afebrile. PHYSICAL EXAMINATION: Vital Signs: Temperature 99.2 degrees, pulse 58, respirations 18, blood pressure 90/53. HEENT: Pupils are equal and round. CVP less than 6 cm. Lungs: Clear in all lung levy. Cardiovascular Examination: Regular rhythm and rate without murmurs or S3. Is and Os: Urine output 1150. LAB: Reviewed from the 3rd. Chemistries from the 3rd as well, unremarkable. ASSESSMENT AND PLAN: 1. Metastatic breast cancer to the bones and brain. She is being continued on Femara, we think 2.5 mg a day. Herceptin was stopped in October of 2014 due to a decreased ejection fraction noticed on echocardiogram in 2014. Stopped coming to the clinic, difficult time traveling. 2. Altered mental status. CT essentially benign but appears to be metabolic encephalopathy which this appears to be improving. 3. Seizure disorder, on Keppra. Continue her Keppra. 4. Brain metastasis, status post radiation. 5. Deep venous thrombosis for which she is on Xarelto. I think we can move her to the floor. 6. Her orders reviewed. See if we can change her over to levetiracetam by mouth. She is on 1000 mg twice a day, on Xarelto 5 mg daily, Topamax 100 mg daily, Synthroid 100 mcg daily, Serax 30 mg by mouth three times a day, trying to get her to swallow a little better, and Prozac 20 mg by mouth twice a day. I have been giving her Ativan intravenously as needed. Normal saline at 75 mL an hour. See if we can transfer her over to the floor today. 7. Plans as outpatient, I am not sure. I think she is going to need some help. May want to get assistance. Decide whether to continue her Femara. Get followup.
[2016-07-07 09:58] LABS: BASO% 0.4 % (0.0-0.8); HEMATOCRIT 35.4 % (37.0-47.0); HEMOGLOBIN 11.5 g/dL (12.0-16.0); IMM GRAN# 0.05 X1000 (0.0-0.04); IMM GRAN% 0.7 % (0.0-0.5); LYMPH# 2.16 X1000 (1.2-3.4); LYMPH% 32.1 % (20.5-51.1); MANUAL DIFF NEEDED? YES; MCH 31.9 PG (27-31); MCHC 32.5 g/dL (33-37); MCV 98.3 FL (81-99); MONO# 0.71 X1000 (0.11-0.59); MONO% 10.6 % (1.7-9.3); MPV 10.5 FL (7.4-10.4); NEUT% 56.2 % (42.2-75.2); PLT 158 X1000 (130-400)
[2016-07-07 09:59] LABS: AGAP 13; ALBUMIN 2.8 g/dL (3.5-5.0); ALKALINE PHOSPHATASE 70 U/L (32-104); BUN 8 mg/dL (8-22); CALCIUM 7.9 mg/dL (8.8-10.2); CHLORIDE 116 mmol/L (98-107); COSMO 296; GOT 27 U/L (10-30); GPT 20 U/L (10-36); MAGNESIUM 1.7 mg/dL (1.5-2.7); POTASSIUM 3.2 mmol/L (3.5-5.1); SODIUM 150 mmol/L (136-145); TCO2 21 mmol/L (25-35); TOTAL BILIRUBIN 0.24 mg/dL (0.20-1.00); TOTAL PROTEIN 5.7 g/dL (6.3-8.3)
[2016-07-07 10:13] LABS: BANDS 2 % (0-1); LYMPHS 28 % (21-51); MONO 8 % (1-9)
[2016-07-07] MEDS ORDERED: POTASSIUM CHLORIDE 40 MEQ/SWI 100 ML IV ONE (10:20)
[2016-07-07] MEDS: KLOR-CON PO SCH (10:21)
[2016-07-07] MEDS: SERAX PO SCH ×3 (10:21→16:57)
[2016-07-07] MEDS: TYLENOL PR PRN (15:32)
[2016-07-07] MEDS: ROCEPHIN 1 GM/NS 50 ML IV SCH (18:10)
[2016-07-08] MEDS: MORPHINE IV PRN ×3 (01:22→21:50)
[2016-07-08] MEDS: ATIVAN IV PRN ×2 (01:22→08:45)
[2016-07-08] MEDS: KEPPRA 1,000 MG in NS 100 ML IV SCH ×2 (02:42→14:22)
[2016-07-08] MEDS: DUONEB (A & A) INH SCH ×4 (03:40→23:35)
[2016-07-08] MEDS: SYNTHROID PO SCH (06:29)
[2016-07-08] MEDS: KLOR-CON PO SCH (08:16)
[2016-07-08] MEDS: TOPAMAX PO SCH (08:16)
[2016-07-08] MEDS: SERAX PO SCH ×3 (08:16→17:11)
[2016-07-08] MEDS: PROZAC PO SCH (08:16)
[2016-07-08] MEDS: XARELTO PO SCH (08:16)
[2016-07-08] MEDS: NS 1,000 ML IV SCH (08:16)
[2016-07-08] MEDS: FEMARA PO SCH (09:15)
[2016-07-08] MEDS ORDERED: POTASSIUM CHLORIDE 40 MEQ/SWI 100 ML IV ONE (09:46)
--- NOTE | 2016-07-08 10:53 | PROGRESS NOTE ---
DATE: 07/08/2016 SUBJECTIVE: Ms. Rapp appears a little more comfortable. Appears to be relaxed. Nasal cannula kind of out of her nose. She is breathing a little more comfortably. She is not grinding her teeth this morning. Still pretty weak. PHYSICAL EXAMINATION: Vital Signs: Temperature 97.2 degrees, pulse 60, respirations 18, blood pressure 105/64. Lungs: Lungs sound clear anterolateral. Cardiovascular Examination: Regular rhythm and rate without murmur or S3. Abdomen: Soft. Skin: Warm and dry. Is and Os: Urine output 1700 mL. LAB: White count from yesterday 6720, hematocrit 35, platelet count 158,000. Sodium 150, potassium 3.2, chloride 116, BUN 8, creatinine 0.5. Her magnesium was 1.7. ASSESSMENT AND PLAN: 1. Metastatic breast cancer to bones and brain. Continue on Femara 2.5 mg a day and Herceptin had been stopped in October of 2014 due to her decreased ejection fraction on an echocardiogram. 2. Altered mental status. Appears to be improving. Multifactorial but suspect main contributor is the metastatic brain cancer. 3. Seizure disorder, on Keppra. No sign of seizure activity right now. Continue Keppra. 4. Brain metastasis, status post radiation. 5. Deep venous thrombosis. She is on Xarelto. 6. Trying to get her to swallow and see how we do with oral intake and observe that and see how we do. If she is not able to get oral nourishment by swallowing, we are going to have to consider other options. Need to discuss long-term plans. 7. Review of her medications. Keppra 1000 mg every 12 hours, Xarelto 5 mg daily, Topamax 100 mg daily, Synthroid 100 mcg daily, Serax 30 mg by mouth three times a day. We have her on Rocephin or ceftriaxone 1 g every 24 hours, Prozac 20 mg twice a day, normal saline at 75 mL an hour. She gets Klor-Con 20 mEq daily, Femara 2.5 mg a day.
[2016-07-08] MEDS ORDERED: SODIUM CHLORIDE 0.9% INJ SCH (13:45)
[2016-07-08] MEDS: PROTONIX IV SCH (14:22)
[2016-07-08] MEDS: D5 NS 1,000 ML IV SCH (14:22)
[2016-07-08] MEDS: SODIUM CHLORIDE 0.9% INJ SCH (14:22)
[2016-07-08 14:39] LABS: INR 1.16; PROTIME 12.3 Seconds (9.2-11.7)
[2016-07-08 14:48] LABS: BASO% 0.2 % (0.0-0.8); EOS# 0.01 X1000 (0.0-0.7); EOS% 0.2 % (0.0-10.0); HEMATOCRIT 33.1 % (37.0-47.0); HEMOGLOBIN 10.4 g/dL (12.0-16.0); LYMPH# 1.34 X1000 (1.2-3.4); LYMPH% 22.3 % (20.5-51.1); MANUAL DIFF NEEDED? YES; MCH 31.4 PG (27-31); MCHC 31.4 g/dL (33-37); MONO# 0.47 X1000 (0.11-0.59); MONO% 7.8 % (1.7-9.3); MPV 10.7 FL (7.4-10.4); NEUT% 69.5 % (42.2-75.2); PLT 162 X1000 (130-400); RBC 3.31 XMIL (4.2-5.4)
[2016-07-08 16:48] LABS: BANDS 18 % (0-1); LYMPHS 32 % (21-51)
[2016-07-08] MEDS: ROCEPHIN 1 GM/NS 50 ML IV SCH (20:04)
[2016-07-09] MEDS: PROZAC PO SCH ×3 (00:41→21:20)
[2016-07-09] MEDS: KEPPRA 1,000 MG in NS 100 ML IV SCH ×2 (03:04→14:05)
[2016-07-09] MEDS: PROTONIX IV SCH ×2 (03:04→14:05)
[2016-07-09] MEDS: D5 NS 1,000 ML IV SCH ×2 (03:11→16:42)
[2016-07-09] MEDS: SODIUM CHLORIDE 0.9% INJ SCH ×2 (03:11→16:43)
[2016-07-09] MEDS: DUONEB (A & A) INH SCH ×4 (03:32→21:05)
[2016-07-09] MEDS: SYNTHROID PO SCH (06:25)
[2016-07-09] MEDS: TOPAMAX PO SCH (09:09)
[2016-07-09] MEDS: KLOR-CON PO SCH (09:09)
[2016-07-09] MEDS: SERAX PO SCH ×3 (09:10→16:43)
[2016-07-09] MEDS: FEMARA PO SCH (09:10)
[2016-07-09] MEDS: MORPHINE IV PRN ×2 (09:41→22:50)
[2016-07-09 11:50] LABS: IRON SATURATION 20 %; TIBC 147 ug/dL; TOTAL IRON 30 ug/dL (49-151); UNBOUND IRON 117 ug/dL (112-346)
--- NOTE | 2016-07-09 14:12 | PROGRESS NOTE ---
DATE: 07/09/2016 SUBJECTIVE: Today Ms. Rapp continues to be extremely altered. Is not able to voice any concerns. The was at the bedside at the time of the encounter. OBJECTIVELY: Vitals signs: Blood pressure is 105/57, pulse of 71, respiration is 18, temperature is 99.6 degrees. General: Ms. Rapp is a 66-year-old female. She is in bed. Did not seem to be in any distress. HEENT: Mucosa is pink and moist. Anicteric. Acyanotic. Neck: Supple. Chest: Air entry is bilaterally reduced. There is some rhonchi bilaterally. Cardiovascular: Regular rate and rhythm. Abdomen: Soft. Extremities: No pedal edema. WHIPPER: Patient is extremely drowsy and only opens her eyes to very painful stimuli. She is nonverbal. Seems to have contraction the lower extremity consistent with longstanding muscle disuse. LABORATORY DATA: No chemistry or CBC since yesterday. Microbiology. Blood cultures have been negative. Sputum is unremarkable. There was no any urine culture however the urine was pretty much dirty at the time of admission. Chest x-ray done on the 2nd did show some stable atelectasis or scarring in the right apex, no focal infiltrates. CURRENT MEDICATIONS: Include. 1. Ceftriaxone. 3. Levothyroxine. ASSESSMENT: 1. Altered mental status. Etiology is unclear. Sounds like is global encephalopathy likely from toxic metabolic etiologies. 2. Metastatic breast cancer to brain and to bones. 3. History of seizure disorder. 4. Electrolyte imbalance including hypernatremia and hypokalemia in recent lab work. 5. Abnormal urine questionable for urinary tract infection. Patient is on ceftriaxone. We are going to do a urine culture. 6. Chest congestion. I think patient probably has aspiration pneumonia. Will however do a CT scan of the chest to be sure what is going on in the chest. [facility]
--- NOTE | 2016-07-09 15:23 | Diag Imaging Result Document ---
PROCEDURE NAME: CT THORAX W/CONTRAST - 07/09/2016 CT CHEST WITH INTRAVENOUS CONTRAST. DOSE REDUCTION PROTOCOL. FINDINGS: There is trace pleural fluid. There is a left-sided Port-A-Cath. No pneumothorax. There are infiltrates and atelectasis in the left lower lobe. The heart is borderline mildly prominent. No enlarged mediastinal lymph nodes. A nasogastric tube passes through the esophagus into the stomach. There is atelectasis or fibrosis in the upper right lung. Alternatively there may be a small linear infiltrate. I do not identify a lung mass. Questionable tiny amount of air near the root of the main pulmonary artery. Limited images through the upper abdomen reveal a right renal stone, cholecystectomy, hepatic cyst, and fatty infiltration. IMPRESSION: Left lower lobe pneumonia with basilar atelectasis and likely atelectasis or fibrosis in the right upper lobe.
[2016-07-09] MEDS: ROCEPHIN 1 GM/NS 50 ML IV SCH (21:20)
[2016-07-09] MEDS ORDERED: VANCOMYCIN IV PER PHARMACY MISC SCH (22:30)
[2016-07-09] MEDS ORDERED: ZOSYN 3.375 GM/NS 50 ML IV SCH (22:30)
[2016-07-09] MEDS ORDERED: VANCOMYCIN 1,750 MG in NS 250 ML IV ONE (23:00)
[2016-07-10] MEDS: SODIUM CHLORIDE 0.9% INJ SCH ×2 (01:31→14:22)
[2016-07-10] MEDS: PROTONIX IV SCH ×2 (01:31→14:22)
[2016-07-10] MEDS: ZOSYN 3.375 GM/NS 50 ML IV SCH ×4 (01:31→21:52)
[2016-07-10] MEDS: DUONEB (A & A) INH SCH ×4 (02:53→21:08)
[2016-07-10] MEDS: KEPPRA 1,000 MG in NS 100 ML IV SCH ×2 (05:20→15:46)
[2016-07-10] MEDS: SYNTHROID PO SCH (06:14)
[2016-07-10] MEDS: D5 NS 1,000 ML IV SCH ×2 (06:14→10:49)
[2016-07-10 07:58] LABS: MANUAL DIFF NEEDED? NO
[2016-07-10 08:22] LABS: BASO% 0.2 % (0.0-0.8); EOS# 0.11 X1000 (0.0-0.7); HEMATOCRIT 33.5 % (37.0-47.0); HEMOGLOBIN 10.7 g/dL (12.0-16.0); IMM GRAN# 0.06 X1000 (0.0-0.04); IMM GRAN% 1.1 % (0.0-0.5); LYMPH# 0.92 X1000 (1.2-3.4); MCH 31.1 PG (27-31); MCHC 31.9 g/dL (33-37); MCV 97.4 FL (81-99); MONO# 0.48 X1000 (0.11-0.59); MONO% 8.9 % (1.7-9.3); MPV 10.7 FL (7.4-10.4); NEUT% 70.8 % (42.2-75.2); PLT 213 X1000 (130-400); RBC 3.44 XMIL (4.2-5.4)
[2016-07-10 08:32] LABS: AGAP 11; ALBUMIN 2.7 g/dL (3.5-5.0); ALKALINE PHOSPHATASE 72 U/L (32-104); BUN 2 mg/dL (8-22); CHLORIDE 107 mmol/L (98-107); COSMO 280; GOT 15 U/L (10-30); GPT 17 U/L (10-36); MAGNESIUM 1.4 mg/dL (1.5-2.7); SODIUM 141 mmol/L (136-145); TCO2 23 mmol/L (25-35); TOTAL BILIRUBIN 0.34 mg/dL (0.20-1.00); TOTAL PROTEIN 5.5 g/dL (6.3-8.3)
[2016-07-10] MEDS: TOPAMAX PO SCH (10:32)
[2016-07-10] MEDS: FEMARA PO SCH (10:32)
[2016-07-10] MEDS: SERAX PO SCH ×3 (10:32→18:03)
[2016-07-10] MEDS: KLOR-CON PO SCH (10:32)
[2016-07-10] MEDS: PROZAC PO SCH ×2 (10:32→21:52)
--- NOTE | 2016-07-10 11:03 | PALLIATIVE CARE CONSULTATION ---
DATE: 07/10/2016 REQUESTING PHYSICIAN: PIA Matias. REASON FOR CONSULTATION: Goals of care. HISTORY OF PRESENT ILLNESS: This is an unfortunate, 66-year-old, female with a past medical history of metastatic breast cancer with metastasis to the brain and the bone. She was most recently admitted on 07/04/2016 after her noticed a change in her mental status. According to her who is at the bedside, he states that Ms. Rapp typically is bedbound. She requires assistance with all of her activities of daily living. However, she was able to voice her needs very minimally. Two to three days prior to this admission, she became nonverbal and was sleeping most of the time. Currently, Ms. Rapp is lying in the hospital bed. She will open her eyes to tactile stimulation but is nonverbal and she does not follow commands. She does not appear to be in any acute distress. There is no grimacing or moaning. The palliative care team has been consulted to assist with goals of care. REVIEW OF SYSTEMS: Unable to review. PAST MEDICAL HISTORY: See HPI. PAST SURGICAL HISTORY: 1. Right mastectomy. 2. CABG. 3. Cholecystectomy. 4. Total knee replacement. SOCIAL HISTORY: Prior to this admission, she lived at home with her who is very attentive. Alcohol, tobacco, and drug use have been denied. FAMILY HISTORY: Positive for esophageal cancer and liver cancer. PHYSICAL EXAMINATION: General: This is a 66-year-old, chronically ill-appearing, female who does not appear to be in any acute distress. HEENT: Atraumatic, normocephalic. She does have an NG tube to the right naris. Neck: Supple. Cardiovascular: Regular rate and rhythm. Pulmonary: Lung sounds are diminished. Respirations are nonlabored. Abdomen: Soft. Extremities: Pulses are palpable. Neurologic: Ms. Rapp will open her eyes to tactile stimulation but she is nonverbal. She does not follow any commands. IMPRESSION: This is a 66-year-old, female with a past medical history as listed above in the history of present illness. I met with Mr. Rapp to discuss the goals of care. He states that he understands Ms. Rapp is at the end-stage of her illness. He states that he would like to take her home, for her to have a natural including stopping the tube feedings when she is discharged. He is unsure of what home services he would like to use once he is discharged. He did have questions regarding home hospice services and those questions were answered. He states that he would like to think about what his options are over the next couple of days. As previously mentioned, Ms. Rapp does not appear to be in any acute distress. Her palliative performance scale at this time appears to be 20%. She is a do not resuscitate level 1. The palliative care team will continue to follow daily until discharge. Thank you for this consultation. Dictated by PIA Peña for Lui Gordillo MD
--- NOTE | 2016-07-10 15:12 | PROGRESS NOTE ---
DATE: 07/10/2016 SUBJECTIVE: This morning Ms. Rapp continues to be stable. No changes overnight. OBJECTIVE: Vital signs: Blood pressure is 100/52, pulse of 95, respirations 14, temperature is 99.6 degrees. General: Ms. Rapp is a 66-year-old female. She is in bed. Does not seem to be in any remarkable distress. HEENT: Mucosa is pink and moist. Anicteric. Acyanotic. Neck: Supple. Chest: Air entry is bilaterally reduced. There is diffuse bilateral end- expiratory wheezes. Cardiovascular: Regular rate and rhythm. Abdomen: Soft. STOGY ROLLER: Patient is excessively drowsy. Only opened eyes to very painful stimuli. Does not follow any commands. Has some contractures in both upper and lower extremities consistent with long-standing muscle disuse. LABORATORY DATA: WBC is 5.42, hemoglobin is 10.7, platelet count of 217,000. Chemistry reviewed. Potassium is 3.0, phosphorus is 2.3, magnesium is 1.4. TSH is normal. ASSESSMENT AND PLAN: 1. Altered mental status. Etiology is unclear. Likely due to global encephalopathy from toxic metabolic etiology. Patient has had multiple MRIs in the past which shows severe white matter changes consistent with brain radiation. So I think her cognition baseline is extremely poor. 2. Metastatic breast cancer to the brain and bones. 3. History of seizure disorder. 4. Electrolyte imbalance including hypokalemia and hypomagnesemia and hypophosphatemia. We will address all of that. 5. Left lower lobe pneumonia, presumably methicillin-resistant Staphylococcus aureus. Patient was started on vancomycin and ceftriaxone yesterday. We will continue on the current antibiotics until tomorrow. 6. Nutritional needs. Patient is getting NG tube feedings. DISPOSITION: I spoke extensively with Mr. Rapp today. He understands that the patient has not shown any remarkable improvement in 6 days and that this is probably just the progression of her underlying disease. He would prefer to go home with his so she can have a very decent with the family. So he requested services of hospice. We will therefore put in a social work associate consult for hospice to come and evaluate the patient and then subsequently get the patient discharged within a day or 2.
[2016-07-11] MEDS: ATIVAN IV PRN ×2 (00:39→23:31)
[2016-07-11] MEDS: MORPHINE IV PRN ×4 (00:39→21:19)
[2016-07-11] MEDS: D5 NS 1,000 ML IV SCH ×2 (01:50→10:08)
[2016-07-11] MEDS ORDERED: VANCOMYCIN 1,400 MG in NS 250 ML IV SCH (02:00)
[2016-07-11] MEDS: ZOSYN 3.375 GM/NS 50 ML IV SCH ×2 (02:20→10:07)
[2016-07-11] MEDS: PROTONIX IV SCH ×2 (02:21→14:12)
[2016-07-11] MEDS: SODIUM CHLORIDE 0.9% INJ SCH ×2 (02:21→14:13)
[2016-07-11] MEDS: KEPPRA 1,000 MG in NS 100 ML IV SCH ×2 (03:06→16:15)
[2016-07-11] MEDS: DUONEB (A & A) INH SCH ×4 (03:49→21:07)
[2016-07-11 07:13] LABS: MANUAL DIFF NEEDED? NO
[2016-07-11 07:18] LABS: BASO% 0.3 % (0.0-0.8); EOS# 0.17 X1000 (0.0-0.7); EOS% 2.9 % (0.0-10.0); HEMATOCRIT 35.9 % (37.0-47.0); HEMOGLOBIN 11.3 g/dL (12.0-16.0); IMM GRAN# 0.04 X1000 (0.0-0.04); IMM GRAN% 0.7 % (0.0-0.5); LYMPH# 1.21 X1000 (1.2-3.4); LYMPH% 20.8 % (20.5-51.1); MCH 31.1 PG (27-31); MCHC 31.5 g/dL (33-37); MCV 98.9 FL (81-99); MPV 10.7 FL (7.4-10.4); NEUT% 63.3 % (42.2-75.2); PLT 235 X1000 (130-400); RBC 3.63 XMIL (4.2-5.4)
[2016-07-11 07:47] LABS: AGAP 11; BUN 4 mg/dL (8-22); CALCIUM 8.4 mg/dL (8.8-10.2); CHLORIDE 110 mmol/L (98-107); COSMO 286; MAGNESIUM 1.5 mg/dL (1.5-2.7); POTASSIUM 3.2 mmol/L (3.5-5.1); SODIUM 145 mmol/L (136-145); TCO2 24 mmol/L (25-35)
[2016-07-11] MEDS: TOPAMAX PO SCH (10:06)
[2016-07-11] MEDS: FEMARA PO SCH (10:06)
[2016-07-11] MEDS: PROZAC PO SCH ×2 (10:06→21:35)
[2016-07-11] MEDS: KLOR-CON PO SCH (10:06)
[2016-07-11] MEDS: SERAX PO SCH ×3 (10:07→16:15)
[2016-07-11] MEDS: MERREM 500 MG in NS 50 ML IV SCH ×2 (10:08→16:15)
--- NOTE | 2016-07-11 12:11 | PROGRESS NOTE ---
DATE: 07/11/2016 SUBJECTIVE: Today Ms. Rapp continues to be the same. There are not any remarkable changes overnight. OBJECTIVE: Vital signs: Blood pressure is 100/64, pulse of 93, respiration is 18, temperature 98.9 degrees. Patient had a temperature of 100.3 and 101 yesterday. General: Ms. Rapp is a 66- year-old female. She is in bed and did not seem to be in any distress. HEENT: Mucosa is pink and moist. Anicteric. Acyanotic. NG tube is in place and she is getting tube feedings. Chest: Air entry is bilaterally reduced. There is diffuse bilateral end expiratory wheezes and some bibasilar crepitations. Cardiovascular: Regular rate and rhythm. Abdomen: Soft. distended, but nontender. SCREW CUTTER: Patient seems to be alert. Has the eyes closed but eyes easily get open with verbal stimulation. She is able to be shaking her lower extremities but she remains nonverbal. LABORATORY DATA: WBC is 5.83, hemoglobin is 11.3, platelet count of 235,000. Chemistry reviewed. Potassium is 3.2, rest of chemistry is unremarkable. ASSESSMENT: 1. Altered mental status. Etiology is unclear. It seems to be global encephalopathy. I think the patient has a very poor cognition to start with due to radiation induced encephalomalacia. 2. Metastatic breast cancer to brain and bones. 3. History of seizure disorder. 4. Electrolyte imbalance including hypokalemia and hypomagnesemia and hypophosphatemia. We will continue to address that. 5. Left lower lobe pneumonia. Presumably MRSA pneumonia. The patient continues to have spikes in temperature. She has been on vancomycin and Zosyn for some time. I would discontinue the Zosyn and add meropenem and have also consulted ID. 6. Nutritional needs. Patient is on NG tube feeding. So our general plan: 1. The is not pretty sure if he wants complete hospice care or wants active medical therapy. He is however very sure that he wants the best at least for now for the patient to make her feel better. So we will have hospice come to talk to him to let him know what services they do have. 2. We will put the patient on meropenem and continue the vancomycin until she is seen by ID. 3. I did explain to the that the patient cannot be on NG tube feeding for a very long time because of risk of sinusitis and nasal lacerations and that the NG tube is just a short- term fix, and he is in agreement and he thinks if in about a week or 2 if the patient does not show any remarkable signs that she will be able to use enteral feeding then he will go full hospice. 4. We will be pending the recommendations from ID to make a decision when patient will be discharged.
--- NOTE | 2016-07-11 16:01 | PALLIATIVE CARE PROGRESS NOTE ---
DATE: 07/11/2016 SUBJECTIVE: Ms. Rapp appears the same today. She will open her eyes to tactile stimulation, but she is nonverbal. She does not appear to be in any acute distress at this time. OBJECTIVE: General: This is a 66-year-old, female, who is lying in the hospital bed. She does not appear to be in any acute distress. HEENT: Atraumatic, normocephalic. She does have an NG tube to the right naris. Cardiovascular: Regular rate and rhythm. Pulmonary: Lung sounds are diminished. Crackles auscultated bilaterally. Abdomen: Soft, but distended. Extremities: Pulses are palpable. Neurological: Ms. Rapp will open her eyes to tactile stimulation, but she does not follow commands and she is nonverbal. ASSESSMENT AND PLAN: I have met with Mr. Rapp twice today to discuss goals of care. One of those visits was alongside Dr. Rajput. Mr. Rapp had questions regarding home hospice services and continuing NG tube feedings, as well as IV antibiotics. He is not sure if he wants to elect hospice services or continue with aggressive at therapy. He states that he would like to speak to their children and explained the situation to them and have them help him to decide what would be best for Ms. Rapp. He did state that he believes that this is Ms. Rapp could make decisions for herself, she would want all aggressive treatment stopped and sent home with hospice services. Ms. Rapp remains a DNR level 1. She does not appear to be in any acute distress at this time. The palliative care team will continue to follow. Dictated by PIA Peña for Lui Gordillo MD
--- NOTE | 2016-07-11 20:23 | CONSULTATION ---
DATE OF CONSULTATION: 07/11/2016 CONCLUSION: The patient has been running a fever. I think it is due to the patient's methicillin- resistant Staph aureus pneumonia. RECOMMENDATIONS: I discontinued vancomycin and meropenem, and instead I have placed the patient on Zyvox. DISCUSSION: The patient is unable to provide a history. The history was taken from a review of the chart and talking to the . The patient was admitted to the hospital with altered mental status. She has been running a fever. The patient has a history of metastatic breast cancer with metastases to the brain and bone. She has, according to the , been for years getting progressively worse as far as her mental status. Currently she is bedridden. She grates her teeth frequently. She did not respond to my verbal stimuli. LABORATORY STUDIES: Thus far are a CBC with a white count of 5830, hemoglobin 11.3, and platelet count 235,000. Creatinine 0.4, GFR is greater than 60. Liver function studies are normal. Sputum grew methicillin-resistant Staph aureus. Blood and urine cultures are sterile. CT scan of the chest showed left lower lobe pneumonia and right upper lobe atelectasis or fibrosis. PAST MEDICAL HISTORY: Positive for metastatic breast cancer, coronary artery disease, seizure disorder, hypothyroidism, deep venous thrombosis, gastroesophageal reflux disease, and hypertension. PAST SURGICAL HISTORY: Positive for a right mastectomy, coronary artery bypass grafting, cholecystectomy, total knee replacement and placement of a left-sided Port-A- Cath. INFECTIOUS DISEASE HISTORY: Positive for pneumonia and UTI. SOCIAL HISTORY: The patient lives at home with her . She does not smoke cigarettes, drink alcoholic beverages or use illicit drugs. FAMILY HISTORY: Positive for esophageal and liver cancer.' ALLERGIES: The patient has no known drug allergies. HOME MEDICATIONS: Topamax, Maxalt, Xarelto, Serax, Reglan, Robaxin, Synthroid, Keppra, Femara, hydromorphone, Prozac, Adderall, potassium. PHYSICAL EXAMINATION: Vital Signs: Temperature is 100 degrees, pulse 91, respirations 18, blood pressure 116/63. Patient's weight is listed as 156 pounds. General: This is an ill-appearing elderly female. She is in no acute distress. Head, eyes, ears, nose, and throat: No drainage noted from the nose or ears. As mentioned above, the patient continually grates her teeth. Neck: No meningismus. Lungs: Clear to auscultation. Cardiovascular: Regular heart rate. Abdomen: Soft and nontender. Extremities: Patient has edema of both legs. They do not appear to be tender. They are not erythematous. Neurologic: The patient has a blank stare. She did not respond to verbal stimuli. There was no tremor. Integument: I did not see a rash. Thank you for the consultation. MTDD
[2016-07-11] MEDS: ZYVOX 600 MG/D5W 300 ML IV SCH (21:35)
[2016-07-11] MEDS: TYLENOL PR PRN (22:06)
[2016-07-12] MEDS: SERAX PO SCH ×3 (01:36→12:18)
[2016-07-12] MEDS: SODIUM CHLORIDE 0.9% INJ SCH ×2 (03:15→15:15)
[2016-07-12] MEDS: PROTONIX IV SCH ×2 (03:16→15:15)
[2016-07-12] MEDS: KEPPRA 1,000 MG in NS 100 ML IV SCH ×2 (03:16→15:14)
[2016-07-12] MEDS: DUONEB (A & A) INH SCH ×3 (03:30→16:43)
[2016-07-12] MEDS: SYNTHROID PO SCH (06:15)
[2016-07-12] MEDS: D5 NS 1,000 ML IV SCH (06:16)
[2016-07-12 07:26] LABS: MANUAL DIFF NEEDED? NO
[2016-07-12 07:33] LABS: BASO% 0.3 % (0.0-0.8); EOS# 0.22 X1000 (0.0-0.7); EOS% 3.4 % (0.0-10.0); HEMATOCRIT 33.2 % (37.0-47.0); HEMOGLOBIN 10.3 g/dL (12.0-16.0); IMM GRAN# 0.04 X1000 (0.0-0.04); IMM GRAN% 0.6 % (0.0-0.5); LYMPH% 20.1 % (20.5-51.1); MCH 31.1 PG (27-31); MCV 100.3 FL (81-99); MONO# 0.72 X1000 (0.11-0.59); MONO% 11.1 % (1.7-9.3); MPV 10.2 FL (7.4-10.4); NEUT% 64.5 % (42.2-75.2); PLT 233 X1000 (130-400); RBC 3.31 XMIL (4.2-5.4)
--- NOTE | 2016-07-12 07:43 | Diag Imaging Result Document ---
PROCEDURE NAME: CHEST-PORTABLE - 07/12/2016 SINGLE FRONTAL RADIOGRAPH OF THE CHEST: COMPARISON: 07/05/2016 and 07/04/2016. FINDINGS: Left chest port and NG tube are stable. There are increased central lung markings suggesting pulmonary venous congestion. Inspiration is suboptimal. Cardiac silhouette is approximately stable. IMPRESSION: Increased central vascular markings suggesting pulmonary venous congestion, grossly stable otherwise.
[2016-07-12] MEDS: PROZAC PO SCH (11:47)
[2016-07-12] MEDS: FEMARA PO SCH (11:47)
[2016-07-12] MEDS: TOPAMAX PO SCH (11:47)
[2016-07-12] MEDS: MORPHINE IV PRN ×2 (11:47→15:15)
[2016-07-12] MEDS: KLOR-CON PO SCH (11:47)
[2016-07-12] MEDS: ZYVOX 600 MG/D5W 300 ML IV SCH (11:48)
[2016-07-12 12:28] VITALS: BP 121/60
[2016-07-12 12:38] LABS: AGAP 6; ALBUMIN 2.5 g/dL (3.5-5.0); ALKALINE PHOSPHATASE 71 U/L (32-104); BUN 7 mg/dL (8-22); CALCIUM 7.7 mg/dL (8.8-10.2); CHLORIDE 110 mmol/L (98-107); COSMO 288; GOT 16 U/L (10-30); GPT 16 U/L (10-36); MAGNESIUM 1.5 mg/dL (1.5-2.7); POTASSIUM 3.5 mmol/L (3.5-5.1); SODIUM 144 mmol/L (136-145); TCO2 28 mmol/L (25-35); TOTAL BILIRUBIN 0.17 mg/dL (0.20-1.00); TOTAL PROTEIN 5.1 g/dL (6.3-8.3)
--- NOTE | 2016-07-12 15:03 | PALLIATIVE CARE PROGRESS NOTE ---
DATE: 07/12/2016 SUBJECTIVE: Ms. Rapp appears uncomfortable today. She is grinding her teeth. She is fidgeting and moaning. OBJECTIVE: General: This is a 66-year-old, ill-appearing, female who is lying in the hospital bed. She is showing nonverbal signs and symptoms of distress. HEENT: Atraumatic, normocephalic. She does have an NG tube to the right naris. Cardiovascular: Regular rate and rhythm. Pulmonary: Lung sounds are diminished with rhonchi auscultated bilaterally. Respirations are labored. Abdomen: Distended and soft. Extremities: Pulses are palpable. Neurological: will open her eyes but she does not follow commands nor is she able to voice any concerns. ASSESSMENT AND PLAN: I met with Mr. Rapp today to continue the conversation of goals of care. He is very tearful but states that he has talked with his children and they have decided to stop all aggressive treatment and to go home with hospice services. He had questions regarding home hospice services. He does state that he would like to talk with the hospitalist today before making a final decision, however, he states that he feels like home with hospice services is the choice that Ms. Rapp would make if she was able to make that choice for herself. Ms. Rapp appears to be very uncomfortable at this time. I have asked for her nurse to give medications for comfort. The palliative care team will be available as needed to assist with pain management or to answer any questions regarding hospice services. Dictated by PIA Peña for Lui Gordillo MD
[2016-07-12] MEDS ORDERED: HEPARIN ONE (17:27)
--- NOTE | 2016-07-13 13:28 | DISCHARGE SUMMARY ---
ADMISSION DATE: 07/04/2016 DISCHARGE DATE: 07/12/2016 CONSULTATIONS: 1. Dr. Agarwal with hematology/oncology. 2. PIA Peña, with palliative care team. 3. Dr. Andrews Haney with infectious disease. PERTINENT PROCEDURES: 1. Cervical spine CT showed no evidence of acute bony disease, chronic atrophy and white matter changes. No evidence of acute intracranial disease. 2. Chest CT showed a left lower lobe pneumonia with bibasilar atelectasis and likely atelectasis or fibrosis in the right upper lobe. 3. Follow up chest x-ray showed increased intravascular markings suggesting a pulmonary venous congestion, grossly stable otherwise. DISCHARGE DIAGNOSES: 1. Altered mental status, etiology was unclear. It seems to be global encephalopathy. The patient has very poor cognition to start with. Data radiation-induced encephalomalacia. 2. Metastatic breast cancer to the brain and bones. The patient going home on hospice. 3. History of seizure disorder. Aware. 4. Electrolyte imbalance including hypokalemia, hypomagnesemia and hypophosphatemia. Continue to address this with feedings, as well as replacements. 5. Left lower lobe pneumonia secondary to methicillin-resistant Staphylococcus aureus. The patient continued to have spikes and fevers. Patient was on vancomycin and Zosyn. Infectious disease was consulted. Changed to Zyvox. 6. Nutritional needs: Patient was on nasogastric tube feedings. Those will be discontinued prior to patient's discharge. Going home on hospice. HOSPITAL COURSE: Briefly, Ms. Rapp is an unfortunate, 66-year-old female, who has a past medical history of metastatic breast cancer with metastasis to the brain and bone. She was brought into the ED with altered mental status. Apparently, she was really never responsive at home and is bedbound per the family. The did state that she was somewhat more responsive than she is during her initial assessment. During assessment, the patient would only open her eyes and make eye contact. She did not respond or have any purposeful movements or follow commands. did state as far as they knew the cancer had gone into remission. However, he was a very poor historian and was not able to give any real information. On her last chemotherapy as far as the knew it was roughly a year ago and it went into remission. Dr. Agarwal was treating her and stated that according to the he did not need to see her as frequently. The patient was placed in the ICU. Her blood pressures on arrival were very marginal with systolics being in the 90s. She was given 2 L of fluid bolus in the emergency room with maintenance fluid. She was continued on her seizure medication, as well as Xarelto for her DVT. The patient also has a Port-A-Cath. Dr. Agarwal was consulted. Per Dr. Agarwal's report, the patient has not been seen in their clinic since December 2015. She had apparently been continuing on Femara 2.5 mg a day. The Herceptin was stopped in October 2014 due to a decreased ejection fraction, and she stopped coming to the clinic due to difficulty traveling back and forth. She was under palliative care and Home Health. Head and cervical head were essentially benign. Throughout Ms. Rapp's stay, she continued to be extremely altered. The NG tube was placed for medications and then started on feedings per 's request. Palliative care team was brought in for goals of care. Mr. Rapp did understand that his was at the end stage of her illness, and he states he would like to take her home for her to have a natural including the stopping of tube feedings when she is discharged. He also understood the hospice could not do IV antibiotics. He did think about his options for a couple of days. Palliative care did continue to follow throughout their stay. She was made a DNR level 1. Again, the patient's went back and forth between taking her home with tube feedings and antibiotics or going home on hospice. Today, the patient talked at length with Dr. Rajput, as well as social media content specialist and palliative care. He has decided to take her home with hospice with the understanding that she will not be getting any tube feedings or IV antibiotics. Unfortunately, throughout the course of her stay the patient did develop an MRSA pneumonia. Dr. Andrews Haney was consulted. Her antibiotics was changed from vancomycin, Zosyn and meropenem to Zyvox. The patient is being discharged now with hospice. VITAL SIGNS: Temperature is 99.5 degrees, heart rate 89, respirations 20, blood pressure 121/60, and O2 is 96% on 2 L. DISCHARGE MEDICATIONS: As per Dr. Rajput. Please see MAR. FOLLOW UP: Patient is being discharged home with hospice. DISCHARGE TIME: Greater than 30 minutes. Dictated by PIA Matias for Abbe Rajput MD
== END 2016-07-12 18:52 | disposition hospice, home (50) | DRG 70 ==
LOC: EDBD → SUPCPDRO 16:36 → ED 16:36 → EDIPHOLD 22:11 → ICU 07-05 10:50 → 3N 07-08 11:01
PROVIDERS: ATTEND Internal Medicine
PROC: 0DH67UZ Insertion of Feeding Device into Stomach, Via Natural or Artificial Opening (ICD-10-PCS; 2016-07-05)
PROC: 3E0G76Z Introduction of Nutritional Substance into Upper GI, Via Natural or Artificial Opening (ICD-10-PCS; principal; 2016-07-09)
DX: G93.49 Other encephalopathy (principal); J15.212 Pneumonia due to Methicillin resistant Staphylococcus aureus; E87.0 Hyperosmolality and hypernatremia; C79.31 Secondary malignant neoplasm of brain; I11.0 Hypertensive heart disease with heart failure; C79.51 Secondary malignant neoplasm of bone; E83.42 Hypomagnesemia; I50.22 Chronic systolic (congestive) heart failure; E46 Unspecified protein-calorie malnutrition; C50.919 Malignant neoplasm of unspecified site of unspecified female breast; G40.909 Epilepsy, unspecified, not intractable, without status epilepticus; E03.9 Hypothyroidism, unspecified; K21.9 Gastro-esophageal reflux disease without esophagitis; Z96.659 Presence of unspecified artificial knee joint; E87.6 Hypokalemia; E83.39 Other disorders of phosphorus metabolism; Y84.2 Radiological procedure and radiotherapy as the cause of abnormal reaction of the patient, or of later complication, without mention of misadventure at the time of the procedure; G93.89 Other specified disorders of brain; I25.10 Atherosclerotic heart disease of native coronary artery without angina pectoris; D53.9 Nutritional anemia, unspecified; Z66 Do not resuscitate; Z74.01 Bed confinement status; Z86.718 Personal history of other venous thrombosis and embolism; Z95.1 Presence of aortocoronary bypass graft; Z80.0 Family history of malignant neoplasm of digestive organs; Z79.899 Other long term (current) drug therapy; Z79.01 Long term (current) use of anticoagulants; Z79.811 Long term (current) use of aromatase inhibitors; Z68.26 Body mass index [BMI] 26.0-26.9, adult
CPT/HCPCS: 51702; 70450; 71010; 71260; 72125; 74000; 80048; 80053; 81001; 82270; 82607; 82728; 82746; 82805; 83540; 83550; 83735; 83880; 84100; 84443; 84484; 85025; 85610; 87040; 87070; 87077; 87088; 87186; 87205; 87804; 93005; 93306; 94640; 94761; 96365; C9113; G0480; J0696; J1940; J1953; J2020; J2060; J2185; J2270; J2543; J3370; J3480; J7030; J7042; J7050; Q9967; 80324; 80329; 80345; 80346; 80349; 80353; 80358; 80361; 80365; 83992; S0164